=== PATIENT | female | born 1960 ===

== ENCOUNTER 2017-01-10 16:45 | Emergency (ER) | payer MEDICAID, OTHER ==
[2017-01-10 17:13] VITALS: BMI 25.6
[2017-01-10 17:15] VITALS: BP 132/79; PULSE 96; RESP 18; TEMP 98.4; O2SAT 98
[2017-01-10] MEDS ORDERED: Bacitracin 500 Units/gm Oint Foilpak UD ONE (17:49)
--- NOTE | 2017-01-10 18:11 | C.PDOC ---
History Of Present Illness 56 y/o female presents to ED with complaints of progressive swelling and pain to left toe. Patient states she dropped suitcase on left foot on 01/03/17 and symptoms have developed since then. Patient denies tingling, numbness, change in sensation or any other complaints at this time. Time Seen by Provider: 01/10/17 17:31 Chief Complaint (Nursing): Lower Extremity Problem/Injury History Per: Patient History/Exam Limitations: no limitations Onset/Duration Of Symptoms: Days Current Symptoms Are (Timing): Still Present Past Medical History Reviewed: Historical Data, Nursing Documentation, Vital Signs Vital Signs: Last Vital Signs Temp 98.4 F 01/10/17 17:14 Pulse 96 H 01/10/17 17:14 Resp 18 01/10/17 17:14 BP 132/79 01/10/17 17:14 Pulse Ox 98 01/11/17 08:15 Family History: States: No Known Family Hx - Social History Hx Alcohol Use: No Hx Substance Use: No - Immunization History Hx Tetanus Toxoid Vaccination: No Hx Influenza Vaccination: No Hx Pneumococcal Vaccination: No Review Of Systems Musculoskeletal: Positive for: Foot Pain Skin: Negative for: Rash Neurological: Negative for: Weakness, Numbness Physical Exam - Physical Exam Appears: No Acute Distress Skin: Normal Color, Warm Head: Atraumatic, Normacephalic Eye(s): bilateral: Normal Inspection, PERRL, EOMI Oral Mucosa: Moist Neck: Supple Cardiovascular: Rhythm Regular Respiratory: Normal Breath Sounds Extremity: Normal ROM, No Calf Tenderness, Capillary Refill (<2 seconds), No Deformity, Swelling (To L 1st toe), Other (paronychia to medial nail fold on L 1st toe, surrounding skin, tender to palpation) Extremity: Bilateral: Normal ROM Pulses: Left Dorsalis Pedis: Normal, Right Dorsalis Pedis: Normal Neurological/Psych: Oriented x3, Normal Motor, Normal Sensation ED Course And Treatment O2 Sat by Pulse Oximetry: 98 - Incision & Drainage Of Abscess Anesthesia: Lidocaine 2% Prep Used: Sterile Water, Betadine Procedure: Incised W/Scalpel Blade#: (11), Drained Pus, Irrigated Cavity W/ Saline Medical Decision Making Medical Decision Making: Plan: * Xray to rule out fracture Patient's toe was soaked in betadine. Paronychia to medial nail fold was excised. Xray negative for fracture. Wound was dressed and patient placed in hard soled shoes and discharged with antibiotics. Patient is afebrile and well appearing. To follow-up in 2 days for wound check. Disposition - Disposition Disposition: HOME/ ROUTINE Disposition Time: 18:37 Condition: GOOD Additional Instructions: Take full course of antibiotics. Keep wound clean. Return in 2 days for wound check. Motrin for pain. Prescriptions: Cephalexin [cephalexin] 500 mg PO QID #40 cap Instructions: Paronychia (ED), Diabetic Foot Care (ED) Forms: Gen Discharge Inst Amharic Print Language: CAMEROONIAN - Clinical Impression Clinical Impression: Paronychia, Foot pain - Scribe Statement The provider has reviewed the documentation as recorded by the Rebeccaibjl Ledezma All medical record entries made by the Rebeccaibjl were at my direction and personally dictated by me. I have reviewed the chart and agree that the record accurately reflects my personal performance of the history, physical exam, medical decision making, and the department course for this patient. I have also personally directed, reviewed, and agree with the discharge instructions and disposition.
--- NOTE | 2017-01-10 18:52 | RAD ---
PROCEDURE: Radiographs of the left great toe. COMPARISON: None available. FINDINGS: BONES: No acute displaced fracture identified. JOINTS: No dislocation. SOFT TISSUES: Soft tissue swelling. No evidence of radiopaque foreign body. OTHER FINDINGS: None. IMPRESSION: Soft tissue swelling. No acute displaced fracture identified. If symptoms persist or if there is continued clinical concern, x-ray follow-up in 7-10 days should be considered.
== END 2017-01-10 19:04 | disposition home or self-care (01) ==
LOC: C.ER 16:45
DX: L03.032 Cellulitis of left toe (principal); M79.672 Pain in left foot

== ENCOUNTER 2017-02-04 14:49 | Emergency (ER) | payer MEDICAID, SELFPAY ==
[2017-02-04 14:49] VITALS: BMI 25.6
[2017-02-04 15:11] VITALS: RESP 18; TEMP 98.3
--- NOTE | 2017-02-04 15:53 | C.PDOC ---
History Of Present Illness 56 yr old female presents to the ER stating she fell 3 days ago and hit her left great toe. Patient reports of pain. Denies leg pain, weakness or numbness. Time Seen by Provider: 02/04/17 15:20 Chief Complaint (Nursing): Lower Extremity Problem/Injury History Per: Patient History/Exam Limitations: no limitations Onset/Duration Of Symptoms: Days (3) Current Symptoms Are (Timing): Still Present Past Medical History Reviewed: Historical Data, Nursing Documentation, Vital Signs Vital Signs: Last Vital Signs Temp 98.3 F 02/04/17 15:10 Pulse 78 02/04/17 16:59 Resp 18 02/04/17 16:59 BP 124/75 02/04/17 16:59 Pulse Ox 98 02/04/17 16:59 Family History: States: No Known Family Hx - Social History Hx Alcohol Use: No Hx Substance Use: No - Immunization History Hx Tetanus Toxoid Vaccination: No Hx Influenza Vaccination: No Hx Pneumococcal Vaccination: No Review Of Systems Except As Marked, All Systems Reviewed And Found Negative. Musculoskeletal: Positive for: Other ((+) Left great toe pain ). Negative for: Leg Pain Neurological: Negative for: Weakness, Numbness Physical Exam - Physical Exam Appears: Non-toxic, No Acute Distress Skin: Warm, Dry, No Rash Head: Atraumatic, Normacephalic Oral Mucosa: Moist Extremity: Normal ROM, No Calf Tenderness, Capillary Refill (<2), Other (Left Great Toe - Tender to palpation. No ecchymosis. No swelling. ) Pulses: Left Dorsalis Pedis: Normal, Right Dorsalis Pedis: Normal Neurological/Psych: Oriented x3, Normal Speech, Normal Motor ED Course And Treatment O2 Sat by Pulse Oximetry: 97 (RA ) Pulse Ox Interpretation: Normal - Other Rad Foot xray X-Ray: Viewed By Me, Read By Radiologist Interpretation: Accession No. : [id number]. Patient Name / ID : JESUS [id number] / [id number]. Exam Date : 02/04/2017 15:52:59 ( Approved ). Study Comment : Sex / Age : F / 56Y. Creator : Ralf Norman MD. Dictator : Ralf Norman MD. Energy Project Engineer : Batch Plant Operator : Ralf Norman MD. Approver2 : Report Date : 02/04/2017 16:16:07. My Comment : . PROCEDURE : Radiographs of the left great toe. TECHNIQUE:: AP radiograph of the left foot, with oblique and lateral view of the left great toe. COMPARISON: None. FINDINGS: BONES: No evidence of fracture. Small bony excrescence, likely exostosis, base of 1st distal phalanx, medial aspect. JOINTS: Normal. SOFT TISSUES: Normal. OTHER FINDINGS: None. IMPRESSION: No acute fracture. Exostosis at the medial base of the 1st distal phalanx, incidentally noted. Progress Note: Ortho shoe and crutches were given by CP. Patient was d/c home with oncology nurse follow up. Medical Decision Making Medical Decision Making: PLAN: * X-Ray - Left Foot Disposition - Disposition Referrals: Parrish Salgado DPM [Staff Provider] - Disposition: HOME/ ROUTINE Disposition Time: 16:46 Condition: STABLE Additional Instructions: Follow up with [employer] Operator within 2-3 days. Return to ED if feel worse. Prescriptions: Ibuprofen [Motrin Tab] 600 mg PO Q8 #30 tab Instructions: Foot Contusion (ED) Forms: [facility] (Maori) - Clinical Impression Clinical Impression: Foot contusion - PA / MANAGER TITLE / Resident Statement MD/DO has reviewed & agrees with the documentation as recorded. - Scribe Statement The provider has reviewed the documentation as recorded by the Scribe Brenda Mays All medical record entries made by the Scribe were at my direction and personally dictated by me. I have reviewed the chart and agree that the record accurately reflects my personal performance of the history, physical exam, medical decision making, and the department course for this patient. I have also personally directed, reviewed, and agree with the discharge instructions and disposition.
--- NOTE | 2017-02-04 16:17 | RAD ---
PROCEDURE: Radiographs of the left great toe. TECHNIQUE:: AP radiograph of the left foot, with oblique and lateral view of the left great toe. COMPARISON: None. FINDINGS: BONES: No evidence of fracture. Small bony excrescence, likely exostosis, base of 1st distal phalanx, medial aspect. JOINTS: Normal. SOFT TISSUES: Normal. OTHER FINDINGS: None. IMPRESSION: No acute fracture. Exostosis at the medial base of the 1st distal phalanx, incidentally noted.
[2017-02-04 17:00] VITALS: BP 124/75; PULSE 78
[2017-02-04 21:43] VITALS: O2SAT 97
== END 2017-02-04 17:00 | disposition home or self-care (01) ==
LOC: C.ER 14:49
DX: S90.111A Contusion of right great toe without damage to nail, initial encounter (principal); W18.39XA Other fall on same level, initial encounter; Y92.9 Unspecified place or not applicable